=== PATIENT | male | born 1955 | race Caucasian/White ===

== ENCOUNTER 2016-12-17 05:48 | Day surgery (SDC) | payer BC ==
[2016-12-17] MEDS ORDERED: Lactated Ringers 1,000 ML IV SCH (06:30)
--- NOTE | 2016-12-17 07:35 | OP ---
SURGERY DATE/TIME: 12/17/2016 0700 PREOPERATIVE DIAGNOSIS: Screening exam. POSTOPERATIVE DIAGNOSIS: Normal colon. PROCEDURE: Colonoscopy. SURGEON: Dr. Oliveira. ANESTHESIA: Medications given by anesthesia department. HISTORY: The patient is a 61 year-old white male patient who now is presenting for screening colonoscopy. He was appraised of the risks of the procedure including the risk of perforation, phlebitis, untoward reaction to medication bleeding, and missed lesions. The patient verbalized his understanding and desired to have the procedure performed. DESCRIPTION OF PROCEDURE: The patient was given the medications by the anesthesia department. He had continuous pulse oximetry, ECG monitoring, intermittent blood pressure monitoring, and tidal CO2 monitoring during the examination. He was placed in the left lateral decubitus position. A digital rectal examination was performed and revealed normal anal sphincter tone and no masses. The flexible Olympus pediatric colonoscope was used to intubate the rectum. A view of the colon was developed sequentially to the cecum. Upon insertion and withdrawal, including a retroflex view in the rectum, no mucosal lesions were encountered. The scope was removed from the patient who tolerated the procedure well and was sent back to OP recovery in good condition. The prep was noted to be fair.
[2016-12-17] MEDS ORDERED: DIPRIVAN 200 MG/20 ML IV ONE (08:00)
[2016-12-17] MEDS ORDERED: Versed 2 MG/2 ML Injection IV ONE (08:00)
[2016-12-17 08:01] VITALS: PULSE 63
[2016-12-17 09:55] VITALS: BP 154/76; O2SAT 95
== END 2016-12-17 09:10 | disposition home or self-care (01) ==
LOC: SDC 05:48
PROVIDERS: ATTEND Family Medicine
PROC: 0DJD8ZZ Inspection of Lower Intestinal Tract, Via Natural or Artificial Opening Endoscopic (ICD-10-PCS; principal; 2016-12-17)
DX: Z12.11 Encounter for screening for malignant neoplasm of colon (principal); Z85.038 Personal history of other malignant neoplasm of large intestine; E11.9 Type 2 diabetes mellitus without complications
CPT/HCPCS: 00810; 82962; J2250; J2704

== ENCOUNTER 2019-06-18 04:33 | Emergency (ER) | payer BC ==
[2019-06-18 05:14] LABS: Appearance CLOUDY (CLEAR); Bacteria RARE /HPF (NEGATIVE); Bilirubin NEGATIVE (NEGATIVE); Blood SMALL Ery/ul (0-5); Epithelial Cells RARE /HPF (FEW); Glucose 50 mg/dL (NEGATIVE); Ketones NEGATIVE (NEGATIVE); Leukocyte Esterase LARGE (NEGATIVE); Mucus SLIGHT /HPF (NEGATIVE); Nitrite POSITIVE (NEGATIVE); Protein,Urine Dip NEGATIVE (Negative); Specific Gravity 1.013 (1.005-1.025); Urobilinogen NEGATIVE mg/dL (0-1); WBC >100 /HPF (0-5)
[2019-06-18] MEDS ORDERED: TYLENOL 325 MG PO STA (05:14)
[2019-06-18] MEDS ORDERED: TYLENOL 325 MG ONE (05:15)
[2019-06-18 06:06] VITALS: O2SAT 93
--- NOTE | 2019-06-18 06:09 | ERPHSYRPT ---
- History of Present Illness Time Seen by Provider: 06/18/19 05:05 Source: patient, family Exam Limitations: no limitations Patient Subjective Stated Complaint: pt states that he has been having trouble urinating, pt states that he gets UTI often, pt states that he woke up at 0330 this shaking, pt states that he had the chills, pt states that he has had trouble empting bladder, pt states that he pushes on his bladder to empty it when urinating, pt state he has frequency and urgency, pt states that he has been taking cefdinir and ibuprofen every night for the past week, pt states that he had left over antibotics, pt states that he has had nausea, pt states that he took cefdinir and 2 ibuprofen at 0400 Triage Nursing Assessment: pt ambulated into the er, pt axo x3, c/o frequency and urgency when urinating, urine cloudy, straw color and foul smelling, denies flank pain, febrile, tachycardic Physician History: This is a 64-year-old male who has a history of prostate problems causing him to have mild urinary retention. He has had several incidences of urinary tract infections. Patient had a prior prescription of Omnicef. He has taken this for the last few days and despite this, he has had dysuria urgency and frequency. He has had fever and chills. Patient took 400 mg of ibuprofen prior to his arrival at approximately 4 AM. Patient denies abdominal pain of significance. He has had no vomiting or diarrhea. Timing/Duration: today Activites at Onset: sleep Quality: pressure Severity of Pain-Max: none Severity of Pain-Current: none Sexual intercourse history: non-contributory Modifying Factors: Improves With: analgesics Associated Symptoms: fever, chills, dysuria, urinary frequency, No nausea, No vomiting Allergies/Adverse Reactions: cat dander Allergy (Verified 06/18/19 05:04) Home Medications: Ibuprofen 200 mg [Motrin 200 mg] 2 tab PO DAILY 12/10/16 [History] Hx Tetanus, Diphtheria Vaccination/Date Given: Yes Hx Influenza Vaccination/Date Given: No Hx Pneumococcal Vaccination/Date Given: No - Review of Systems Constitutional: Fever, Chills Eyes: No Symptoms Ears, Nose, & Throat: No Symptoms Respiratory: No Symptoms Cardiac: No Symptoms Abdominal/Gastrointestinal: No Symptoms Genitourinary Symptoms: Dysuria, Frequency, Urgency, Urinary Retention (mild) Musculoskeletal: No Symptoms Skin: No Symptoms Neurological: No Symptoms Psychological: No Symptoms Endocrine: No Symptoms Hematologic/Lymphatic: No Symptoms Immunological/Allergic: No Symptoms All Other Systems: Reviewed and Negative - Past Medical History Pertinent Past Medical History: Yes Neurological History: No Pertinent History ENT History: No Pertinent History Respiratory History: Other Endocrine Medical History: Diabetes Type II Musculoskeletal History: Other GI Medical History: GERD History: Other Psycho-Social History: No Pertinent History Male Reproductive Disorders: No Pertinent History Other Medical History: heart murmur. shoulder pain. frequent uti - Past Surgical History Past Surgical History: Yes Neuro Surgical History: No Pertinent History Cardiac: No Pertinent History Respiratory: No Pertinent History Gastrointestinal: Hemorrhoidectomy Genitourinary: No Pertinent History Musculoskeletal: No Pertinent History Male Surgical History: Vasectomy - Social History Smoking Status: Former smoker Exposure to second hand smoke: No Drug Use: none Patient Lives Alone: No - Nursing Vital Signs Nursing Vital Signs: Initial Vital Signs Temperature 101.5 F 06/18/19 04:45 Pulse Rate 124 H 06/18/19 04:45 Respiratory Rate 15 06/18/19 04:45 Blood Pressure 133/72 06/18/19 04:45 O2 Sat by Pulse Oximetry 94 L 06/18/19 04:45 - Physical Exam General Appearance: no apparent distress, alert, anxiety Eye Exam: PERRL/EOMI, eyes nml inspection Ears, Nose, Throat Exam: normal ENT inspection, moist mucous membranes Neck Exam: normal inspection, non-tender, supple, full range of motion Respiratory Exam: normal breath sounds, lungs clear, airway intact, No chest tenderness, No respiratory distress Cardiovascular Exam: tachycardia Gastrointestinal/Abdomen Exam: soft, normal bowel sounds, No tenderness Rectal Exam: not done Back Exam: normal inspection, normal range of motion, No CVA tenderness, No vertebral tenderness Extremity Exam: normal inspection, normal range of motion, pelvis stable Neurologic Exam: alert, oriented x 3, cooperative, 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 loader II-XII nml as tested Skin Exam: normal color, warm, dry Lymphatic Exam: No adenopathy SpO2 Interpretation: borderline oxygenation SpO2: 93 O2 Delivery: Room Air - Course Nursing assessment & vital signs reviewed: Yes Ordered Tests: Active Orders 24 hr Category Date Time Status CULTURE,URINE Stat Lab 06/18/19 05:08 Received UA W/RFX UR CULTURE Stat Lab 06/18/19 05:08 Completed Medication Summary Discontinued Medications Generic Name Dose Route Start Last Admin Trade Name Jamal PRN Reason Stop Dose Admin Acetaminophen 650 mg 06/18/19 05:14 06/18/19 05:16 Tylenol 325 Mg PO 06/18/19 05:15 650 mg STAT STA Administration Acetaminophen Confirm 06/18/19 05:15 Tylenol 325 Mg Administered 06/18/19 05:16 Dose 650 mg .ROUTE .STK-MED ONE Ciprofloxacin 500 mg 06/18/19 06:11 Cipro 500 Mg PO 06/18/19 06:12 STAT ONE Ibuprofen 200 mg 06/18/19 06:12 Motrin 200 Mg PO 06/18/19 06:13 STAT ONE Lab/Rad Data: Laboratory Results 06/18/19 Range/Units 05:08 Urine Color YELLOW (YELLOW) Urine Appearance CLOUDY (CLEAR) Urine pH 6.0 (5-6) Ur Specific [place] 1.013 (1.005-1.025) Urine Protein NEGATIVE (Negative) Urine Ketones NEGATIVE (NEGATIVE) Urine Blood SMALL (0-5) Juan/ul Urine Nitrite POSITIVE (NEGATIVE) Urine Bilirubin NEGATIVE (NEGATIVE) Urine Urobilinogen NEGATIVE (0-1) mg/dL Ur Leukocyte Esterase LARGE (NEGATIVE) Urine WBC (Auto) >100 (0-5) /HPF Urine RBC (Auto) 16-25 (0-2) /HPF U Epithel Cells (Auto) RARE (FEW) /HPF Urine Bacteria (Auto) RARE (NEGATIVE) /HPF Urine Mucus (Auto) SLIGHT (NEGATIVE) /HPF Urine Culture Reflexed YES (NO) Urine Glucose 50 (NEGATIVE) mg/dL - Progress Progress: unchanged Air Movement: good Progress Note: 06/18/19 06:18 differential diagnosis includes urinary tract infection, urinary retention, Medical decision making: Since the patient has been taking Omnicef orally for few days and there is persistent symptoms we have opted for changing the antibiotic to Cipro. I offered the patient placement of a Emanuel catheter to help keep urinary flow going. Patient declines at this time. Blood Culture(s) Obtained: No Antibiotics given: Yes Counseled pt/family regarding: lab results, diagnosis, need for follow-up - Departure Departure Disposition: Home Clinical Impression: UTI (urinary tract infection), Fever Condition: Stable Critical Care Time: No Referrals: LEAH RODRIGUEZ [Primary Care Provider] - Additional Instructions: Drink plenty of fluids. Take 650 mg of Tylenol at a time and alternate with 600 mg of ibuprofen orally with food every 4 hours while awake. Follow-up with your primary care doctor for further management Prescriptions: Ciprofloxacin [Cipro 500 MG] 500 mg PO BID #20 tablet
[2019-06-18] MEDS ORDERED: Cipro 500 MG PO ONE (06:11)
[2019-06-18] MEDS ORDERED: MOTRIN 200 MG PO ONE (06:12)
[2019-06-18] MEDS ORDERED: MOTRIN 400 MG ONE (06:16)
[2019-06-18] MEDS ORDERED: Cipro 500 MG ONE (06:16)
[2019-06-18 06:31] VITALS: BP 122/66; PULSE 99
== END 2019-06-18 06:33 | disposition home or self-care (01) ==
LOC: ED 04:33
DX: N39.0 Urinary tract infection, site not specified (principal); R50.9 Fever, unspecified; E11.9 Type 2 diabetes mellitus without complications; K21.9 Gastro-esophageal reflux disease without esophagitis
CPT/HCPCS: 81001; 87077; 87086; 87186; 99284; A9270-GY

== ENCOUNTER 2021-01-26 09:36 | Inpatient (IN) | payer BC ==
[2021-01-26 09:47] LABS: A-aADO2 477; ABG HEMOGLOBIN 14.7; ABG POTASSIUM 4.3 (3.5-5.1); ARTERIAL BLD GAS O2 SATURATION 82.4 % (95-100); ARTERIAL BLOOD GAS BASE EXCESS -3.3 (-2.0-2.0); ARTERIAL BLOOD GAS FIO2 80 %; ARTERIAL BLOOD GAS PCO2 36 mmHg (35-45); ARTERIAL BLOOD GAS pH 7.38 (7.35-7.45); CARBOXYHEMOGLOBIN 1.4 % THgb (0.0-6.9); HCO3- 21.3 (22-28); HGB O2 SAT 80.7 g/dF (94-100); Lactic Acid 2.3 (0.4-2.0); Methhemoglobin 0.7 % (1.4-1.5)
[2021-01-26 09:48] LABS: ABG SITE LEFT RADIAL; ALLEN TEST OK? yes; ARTERIAL BLOOD GAS PO2 48 mmHg (75-100)
[2021-01-26] MEDS ORDERED: DUONEB 0.5-3 MG/3 ml Neb IH ONE ×3 (09:48→15:16)
--- NOTE | 2021-01-26 10:10 | ERPHSYRPT ---
- History of Present Illness Time Seen by Provider: 01/26/21 09:48 Source: patient Exam Limitations: no limitations Patient Subjective Stated Complaint: SOB Triage Nursing Assessment: Patient brought into ED via EMS and transferred to bed with assist of 3. Patient A+O X3. Patient's skin pink, warm and dry. Patient complains of SOB. Patient states he tested positive for COVID with home test on Saturday. Patient was seen in [facility] yesterday and given oxygen and he was wearing it at 3 liters per n/c. Patient called EMS due to O2 Sat in the 60s. EMS arrived and O2 77% on room air and placed patient on breathing tx which raised to 81%. Patient placed on oxymask at 15 liters upon arrival which sat was 81%. Patient placed on Bipap and brought to 99%. Physician History: 65 years old male with a history of diabetes mellitus, hypertension, unvaccinated against COVID-19 presented in the ER with increasing shortness of breath for 1 week. Patient reports positive home COVID-19 test few days ago and was seen yesterday at [facility], was given 3 L oxygen but shortness of breath is getting worse to the point that despite using oxygen does not feel he is able to catch his breath. Patient reports his oxygen was dropping 60s and on EMS arrival it was 77, given Solu-Medrol, neb treatment, placed on 15 L and was 88 1% on arrival with decreased air entry bilateral. Immediately placed on BiPAP and improved saturation of 99% and is feeling much better. Patient reports having tightness and pressure all over her chest with subjective feeling of fever and chills. Cough productive of minimal sputum. History is limited secondary to his respiratory distress and acuity of condition. Timing/Duration: week(s) (1), constant, gradual onset, worse Activities at Onset: activity, rest Severity of Dyspnea-Max: severe Severity of Dyspnea-Current: severe Modifying Factors: Improves With: oxygen Associated Symptoms: cough, wheezing, heaviness, painful breathing, productive cough, tightness Allergies/Adverse Reactions: cat dander Allergy (Verified 01/26/21 09:43) Home Medications: Ibuprofen 200 mg [Motrin 200 mg] 2 tab PO DAILY 12/10/16 [History] Hx Tetanus, Diphtheria Vaccination/Date Given: Yes Hx Influenza Vaccination/Date Given: No Hx Pneumococcal Vaccination/Date Given: No Immunizations Up to Date: Yes Travel Risk - International Travel Have you traveled outside of the country in past 3 weeks: No - Coronavirus Screening Are you exhibiting any of the following symptoms?: Yes Symptoms: Cough: New Onset, Shortness of Breath Close contact with a COVID-19 positive Pt in past 14-21 Days: Yes - Vaccine Status Have you recieved a Covid-19 vaccination: No - Review of Systems All Other Systems: Unable due to condition - Past Medical History Pertinent Past Medical History: Yes Neurological History: No Pertinent History ENT History: No Pertinent History Respiratory History: Other Endocrine Medical History: Diabetes Type II Musculoskeletal History: Other GI Medical History: GERD History: Other Psycho-Social History: No Pertinent History Male Reproductive Disorders: No Pertinent History Other Medical History: heart murmur. shoulder pain. frequent uti - Past Surgical History Past Surgical History: Yes Neuro Surgical History: No Pertinent History Cardiac: No Pertinent History Respiratory: No Pertinent History Gastrointestinal: Hemorrhoidectomy Genitourinary: No Pertinent History Musculoskeletal: No Pertinent History Male Surgical History: Vasectomy - Social History Smoking Status: Former smoker Exposure to second hand smoke: No Drug Use: none Patient Lives Alone: No - Nursing Vital Signs Nursing Vital Signs: Initial Vital Signs Temperature 98.0 F 01/26/21 09:43 Pulse Rate 82 01/26/21 09:43 Respiratory Rate 20 01/26/21 09:43 Blood Pressure 118/55 01/26/21 09:43 O2 Sat by Pulse Oximetry 98 01/26/21 09:43 Pain Scale Pain Intensity 0 - Physical Exam General Appearance: moderate distress, alert, anxiety Eye Exam: PERRL/EOMI, eyes nml inspection Ears, Nose, Throat Exam: pharyngeal erythema Neck Exam: normal inspection, non-tender, full range of motion Respiratory Exam: respiratory distress, diminished breath sounds, accessory muscle use, crackles/rales, rhonchi, wheezing Cardiovascular/Chest Exam: normal heart sounds, regular rate/rhythm Abdominal/Gastrointestinal Exam: soft, normal bowel sounds, No tenderness Extremity Exam: non-tender, normal range of motion, normal inspection Neurologic Exam: alert, oriented x 3, 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, 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 Skin Exam: normal color SpO2 Interpretation: O2 applied SpO2: 98 O2 Delivery: BiPap/CPAP - Course EKG Interpreted by Me: RATE (93), Sinus Rhythm, NORMAL AXIS, NORMAL INTERVALS, Q-wave Ordered Tests: Active Orders 24 hr Category Date Time Status EKG-ER Only STAT Care 01/26/21 09:48 Active IV Insertion STAT Care 01/26/21 09:48 Active CHEST 1 VIEW (PORTABLE) Stat Exams 01/26/21 09:49 Completed CHEST WITH CONTRAST [CT] Stat Exams 01/26/21 10:46 Ordered ABG [ARTERIAL BLOOD GASES] Urgent Lab 01/26/21 09:46 Completed BLOOD CULTURE Stat Lab 01/26/21 10:05 Received CBC W DIFF Stat Lab 01/26/21 10:05 Completed CMP Stat Lab 01/26/21 10:05 Completed D-DIMER QUANTITATIVE Stat Lab 01/26/21 10:05 Completed Lactic Acid Urgent Lab 01/26/21 09:46 Completed MAGNESIUM Stat Lab 01/26/21 10:05 Completed Manual Differential NC Stat Lab 01/26/21 10:05 Completed NT PRO BNP Stat Lab 01/26/21 10:05 Completed TROPONIN Q3H Lab 01/26/21 10:00 Completed TROPONIN Q3H Lab 01/26/21 13:00 Ordered TROPONIN Q3H Lab 01/26/21 16:00 Ordered TROPONIN Q3H Lab 01/26/21 19:00 Ordered TROPONIN Q3H Lab 01/26/21 22:00 Ordered UA W/RFX UR CULTURE Stat Lab 01/26/21 09:49 Ordered BiPap/CPAP STAT RT 01/26/21 09:48 Completed Respiratory Therapy Assessment DAILY RT 01/26/21 10:23 Completed Transfer Order Routine Transfer 01/26/21 Ordered Medication Summary Generic Name Dose Route Start Last Admin Trade Name Freq PRN Reason Stop Dose Admin Levofloxacin/Dextrose 750 mg in 150 mls @ 100 mls/hr 01/26/21 10:46 Levofloxacin 750mg/150ml D5w IV 01/26/21 12:15 STAT STA Remdesivir 200 mg/ Sodium 250 mls @ 125 mls/hr 01/26/21 10:48 Chloride IV 01/26/21 12:47 ONCE ONE Discontinued Medications Generic Name Dose Route Start Last Admin Trade Name Freq PRN Reason Stop Dose Admin Albuterol/Ipratropium 3 ml 01/26/21 09:48 01/26/21 10:00 Duoneb 0.5-3 Mg/3 Ml Neb IH 01/26/21 09:49 3 ml STAT ONE Administration Albuterol/Ipratropium Confirm 01/26/21 10:01 Duoneb 0.5-3 Mg/3 Ml Neb Administered 01/26/21 10:02 Dose 3 ml IH .STK-MED ONE Lab/Rad Data: Laboratory Result Diagrams 01/26/21 10:05 01/26/21 10:05 Laboratory Results 01/26/21 01/26/21 01/26/21 Range/Units 10:19 10:05 10:05 WBC (4.0-10.5) K/mm3 RBC (4.1-5.6) M/mm3 Hgb (12.5-18.0) gm/dl Hct (42-50) % MCV (78-100) fl MCH (26-32) pg MCHC (32-36) g/dl RDW (11.5-14.0) % Plt Count (150-450) K/mm3 MPV (7.5-11.0) fl D-Dimer 1352 H* (215-500) ng/mL Puncture Site pCO2 (35-45) mmHg pO2 (75-100) mmHg Base Excess (-2.0-2.0) O2 Saturation (94-100) g/dF ABG pH (7.35-7.45) ABG HCO3 (22-28) ABG O2 Sat (Measured) (95-100) % Eloy Test A-a Gradient a/A Ratio Hemoglobin Carboxyhemoglobin (0.0-6.9) % THgb Methemoglobin (1.4-1.5) % Potassium 4.2 (3.5-5.1) Temperature C POC O2 Flow Rate % Sodium 128 L (137-145) mmol/L Chloride 97 L (98-107) mmol/L Carbon Dioxide 18 L (22-30) mmol/L Anion Gap 16.4 H (5-15) MEQ/L BUN 28 H (9-20) mg/dL Creatinine 0.97 (0.66-1.25) mg/dL Estimated GFR > 60.0 ML/MIN Glucose 200 H (74-106) mg/dL Lactic Acid (0.4-2.0) Calcium 8.0 L (8.4-10.2) mg/dL Magnesium 2.1 (1.6-2.3) mg/dL Total Bilirubin 0.60 (0.2-1.3) mg/dL AST 138 H (17-59) U/L ALT 77 H (0-50) U/L Alkaline Phosphatase 60 (38-126) U/L Troponin I (0.000-0.034) ng/mL NT-Pro-B Natriuret Pep 88.0 (0-900) pg/mL Serum Total Protein 7.4 (6.3-8.2) g/dL Albumin 3.8 (3.5-5.0) g/dL SARS-CoV-2 (PCR) POSITIVE A (NEGATIVE) 01/26/21 01/26/21 01/26/21 Range/Units 10:05 10:00 09:46 WBC 5.9 (4.0-10.5) K/mm3 RBC 4.65 (4.1-5.6) M/mm3 Hgb 14.2 (12.5-18.0) gm/dl Hct 43.1 (42-50) % MCV 92.7 (78-100) fl MCH 30.5 (26-32) pg MCHC 32.9 (32-36) g/dl RDW 14.0 (11.5-14.0) % Plt Count 188 (150-450) K/mm3 MPV 9.7 (7.5-11.0) fl D-Dimer (215-500) ng/mL Puncture Site LEFT RADIAL pCO2 36 (35-45) mmHg pO2 48 L* (75-100) mmHg Base Excess -3.3 L (-2.0-2.0) O2 Saturation 80.7 L (94-100) g/dF ABG pH 7.38 (7.35-7.45) ABG HCO3 21.3 L (22-28) ABG O2 Sat (Measured) 82.4 L (95-100) % Eloy Test yes A-a Gradient 477 a/A Ratio 0.09 Hemoglobin 14.7 Carboxyhemoglobin 1.4 (0.0-6.9) % THgb Methemoglobin 0.7 L (1.4-1.5) % Potassium 4.3 (3.5-5.1) Temperature 37.0 C POC O2 Flow Rate 80 % Sodium (137-145) mmol/L Chloride (98-107) mmol/L Carbon Dioxide (22-30) mmol/L Anion Gap (5-15) MEQ/L BUN (9-20) mg/dL Creatinine (0.66-1.25) mg/dL Estimated GFR ML/MIN Glucose (74-106) mg/dL Lactic Acid 2.3 H (0.4-2.0) Calcium (8.4-10.2) mg/dL Magnesium (1.6-2.3) mg/dL Total Bilirubin (0.2-1.3) mg/dL AST (17-59) U/L ALT (0-50) U/L Alkaline Phosphatase (38-126) U/L Troponin I 0.016 (0.000-0.034) ng/mL NT-Pro-B Natriuret Pep (0-900) pg/mL Serum Total Protein (6.3-8.2) g/dL Albumin (3.5-5.0) g/dL SARS-CoV-2 (PCR) (NEGATIVE) - Progress Progress: improved Air Movement: fair Progress Note: 01/26/21 11:35 65 years old is evaluated for severe respiratory distress with positive COVID-19 at home. Patient is immediately placed on BiPAP followed by CPAP which help with this work of breathing. Chest x-ray showed bilateral airspace disease, given a dose of Levaquin. Patient already received a shot of Solu-Medrol on the way to the ER. Given breathing treatment. Has normal white count, chemistry profile showed mild hyponatremia. Started on remdesivir. Discussed with Dr. Abrams and patient is being admitted. Elevated D-dimer and CTA is currently pending Blood Culture(s) Obtained: Yes Antibiotics given: Yes Discussed with : Other (Dr. Mata) Will see patient in: hospital (full admit) Counseled pt/family regarding: lab results, diagnosis, rad results - Departure Departure Disposition: In-patient Admission Clinical Impression: Acute respiratory failure with hypoxia, COVID-19 Bilateral pneumonia Qualifiers: Pneumonia type: due to unspecified organism Lung location: unspecified part of lung Qualified Code(s): J18.9 - Pneumonia, unspecified organism Condition: Fair Critical Care Time: Yes Critical Care Time(excluding separately billable procedures): Critical 30-74 mins Referrals: LEAH RODRIGUEZ [Primary Care Provider] -
--- NOTE | 2021-01-26 10:20 | XRAY ---
Indication: Short of breath. Comparison: None Portable chest slightly underinflated with diffuse bilateral hazy interstitial alveolar opacities without consolidation/large effusion. Heart borderline enlarged. Bony thorax intact.
[2021-01-26 10:32] LABS: Hematocrit 43.1 % (42-50); Hemoglobin 14.2 gm/dl (12.5-18.0); Mean Cell Volume 92.7 fl (78-100); Mean Corpuscular Hemoglobin 30.5 pg (26-32); Mean Corpuscular Hgb Concent. 32.9 g/dl (32-36); Mean Platelet Volume 9.7 fl (7.5-11.0); Platelet Count 188 K/mm3 (150-450); Red Blood Count 4.65 M/mm3 (4.1-5.6); White Blood Count 5.9 K/mm3 (4.0-10.5)
[2021-01-26 10:35] LABS: ALBUMIN 3.8 g/dL (3.5-5.0); ALKALINE PHOSPHATASE 60 U/L (38-126); ANION GAP 16.4 MEQ/L (5-15); BLOOD UREA NITROGEN 28 mg/dL (9-20); CHLORIDE 97 mmol/L (98-107); Carbon Dioxide 18 mmol/L (22-30); Creatinine 1 0.97 mg/dL (0.66-1.25); EST GLOMERULAR FILTRATION RATE > 60.0 ML/MIN; Glucose 200 mg/dL (74-106); MAGNESIUM 2.1 mg/dL (1.6-2.3); Potassium 4.2 mmol/L (3.5-5.1); SGOT/AST 138 U/L (17-59); SGPT/ALT 77 U/L (0-50); SODIUM 128 mmol/L (137-145); Total Protein 7.4 g/dL (6.3-8.2)
[2021-01-26] MEDS ORDERED: LEVOFLOXACIN 750MG/150ML D5W 750 MG/150 ML BAG IV STA (10:46)
[2021-01-26] MEDS ORDERED: REMDESIVIR 200 MG in Sodium Chloride 0.9% 250 ML 250 ML IV ONE ×2 (10:48→15:00)
--- NOTE | 2021-01-26 11:58 | XRAY ---
Indication: Short of breath and nausea. Elevated d-dimer. Positive Covid 19. Multiple contiguous images obtained through the chest using 100 cc Isovue 370 contrast and PE protocol. Comparison: None There is suboptimal opacification of the pulmonary arteries limiting evaluation of the more distal lobar and segmental branches. No central pulmonary embolus. Heart not enlarged. Aorta is normal in course and caliber. No pathologic mediastinal/hilar lymphadenopathy. Markedly diffuse bilateral groundglass airspace disease with bilateral dependent atelectasis. No effusion. Bony thorax intact with minimal degenerative changes throughout the spine. Limited upper abdomen demonstrates fatty liver. Impression: 1. Pulmonary embolus evaluation limited due to suboptimal contrast opacification. No obvious central pulmonary embolus. 2. Markedly diffuse bilateral groundglass airspace disease. Commonly reported imaging features of Covid 19 pneumonia are present. Other processes such as influenza pneumonia and organizing pneumonia, as can be seen with drug toxicity and connective tissue disease, can cause a similar imaging pattern. 3. Incidental fatty liver.
[2021-01-26] MEDS ORDERED: LEVOFLOXACIN 750MG/150ML D5W 750 MG/150 ML BAG IV ONE (13:07)
[2021-01-26 13:14] LABS: BAND 4 % (0.0-2.0); Lymphocytes 10 % (24-44); Monocyte 8 % (0.0-12.0); Neutrophils 78 % (36.-66.); Platelet Estimate NORMAL (NORMAL); Total Cells Counted 100
[2021-01-26] MEDS ORDERED: Sodium Chloride 0.9% W/ 20 mEq KCl/LITER 1,000 ML IV SCH (13:41)
[2021-01-26] MEDS ORDERED: DECADRON 10MG INJ. IV SCH (14:00)
[2021-01-26] MEDS ORDERED: HYDROCODONE-CHLORPHEN ER SUSP PO PRN (14:24)
[2021-01-26] MEDS ORDERED: FEVERALL 650 MG RC PRN (14:24)
[2021-01-26] MEDS ORDERED: Zofran 4 MG/2 ML VIAL IV PRN (14:25)
[2021-01-26] MEDS: DECADRON 10MG INJ. IV SCH (14:40)
[2021-01-26] MEDS: ENOXAPARIN SODIUM SQ SCH (14:40)
[2021-01-26] MEDS: Sodium Chloride 0.9% 1000 ML 1,000 ML IV SCH (14:41)
[2021-01-26] MEDS: PROTONIX 40 MG IV IV SCH (14:41)
[2021-01-26] MEDS: OLUMIANT PO SCH (16:30)
[2021-01-26] MEDS: HUMALOG SQ PRN ×2 (16:55→22:07)
[2021-01-26] MEDS: Ativan 1 MG PO PRN (17:43)
[2021-01-26 19:33] LABS: A-aADO2 606; ABG HEMOGLOBIN 14.6; ABG POTASSIUM 4.7 (3.5-5.1); ABG SITE RIGHT RADIAL; ALLEN TEST OK? YES; ARTERIAL BLD GAS O2 SATURATION 89.8 % (95-100); ARTERIAL BLOOD GAS BASE EXCESS -4.4 (-2.0-2.0); ARTERIAL BLOOD GAS FIO2 100 %; ARTERIAL BLOOD GAS PCO2 39 mmHg (35-45); ARTERIAL BLOOD GAS PO2 58 mmHg (75-100); ARTERIAL BLOOD GAS VENT MODE BiPAP; ARTERIAL BLOOD GAS pH 7.34 (7.35-7.45); CARBOXYHEMOGLOBIN 0.9 % THgb (0.0-6.9); HGB O2 SAT 88.6 g/dF (94-100); Methhemoglobin 0.4 % (1.4-1.5)
[2021-01-26] MEDS ORDERED: Decadron 4 MG INJ ONE ×2 (19:40→19:41)
[2021-01-26] MEDS ORDERED: Lasix 20 MG/2 ML ONE (19:40)
[2021-01-26] MEDS ORDERED: Decadron 4 MG INJ IV ONE (19:54)
[2021-01-26 20:08] LABS: Appearance SLIGHTLY CLOUDY (CLEAR); Bilirubin NEGATIVE (NEGATIVE); Blood NEGATIVE Ery/ul (0-5); Glucose 150 mg/dL (NEGATIVE); Ketones TRACE (NEGATIVE); Leukocyte Esterase NEGATIVE (NEGATIVE); Mucus SLIGHT /HPF (NEGATIVE); Nitrite NEGATIVE (NEGATIVE); Protein,Urine Dip 100 (Negative); RBC 0-2 /HPF (0-2); Specific Gravity 1.027 (1.005-1.025); Urobilinogen NEGATIVE mg/dL (0-1)
[2021-01-26] MEDS ORDERED: ENOXAPARIN SODIUM SQ SCH (22:00)
[2021-01-26] MEDS: DUONEB 0.5-3 MG/3 ml Neb IH SCH ×2 (22:00→22:10)
[2021-01-26] MEDS ORDERED: Lubrifresh P.M. 3.5 gm Ointment OP PRN (23:00)
[2021-01-27] MEDS: DUONEB 0.5-3 MG/3 ml Neb IH SCH ×4 (01:33→19:00)
[2021-01-27] MEDS ORDERED: Lasix 20 MG/2 ML IV ONE ×2 (02:00→19:54)
[2021-01-27 05:31] LABS: Hematocrit 43.2 % (42-50); Hemoglobin 14.3 gm/dl (12.5-18.0); Mean Cell Volume 91.7 fl (78-100); Mean Corpuscular Hemoglobin 30.4 pg (26-32); Mean Corpuscular Hgb Concent. 33.1 g/dl (32-36); Mean Platelet Volume 9.3 fl (7.5-11.0); Platelet Count 232 K/mm3 (150-450); Red Blood Count 4.71 M/mm3 (4.1-5.6); White Blood Count 5.7 K/mm3 (4.0-10.5)
[2021-01-27 05:56] LABS: ALBUMIN 3.6 g/dL (3.5-5.0); ALKALINE PHOSPHATASE 68 U/L (38-126); BLOOD UREA NITROGEN 28 mg/dL (9-20); CHLORIDE 98 mmol/L (98-107); Calcium 8.1 mg/dL (8.4-10.2); Carbon Dioxide 23 mmol/L (22-30); Creatinine 1 1.01 mg/dL (0.66-1.25); EST GLOMERULAR FILTRATION RATE > 60.0 ML/MIN; Glucose 275 mg/dL (74-106); Potassium 4.4 mmol/L (3.5-5.1); SGOT/AST 128 U/L (17-59); SGPT/ALT 75 U/L (0-50); SODIUM 129 mmol/L (137-145); Total Protein 7.3 g/dL (6.3-8.2)
[2021-01-27 07:13] LABS: BAND 14 % (0.0-2.0); Lymphocytes 19 % (24-44); Metamyelocyte 3 %; Monocyte 10 % (0.0-12.0); Myelocyte 1 %; Neutrophils 53 % (36.-66.); Platelet Estimate NORMAL (NORMAL); Total Cells Counted 100
[2021-01-27 07:14] LABS: Absolute Neutrophil Ct (ANC) 3.85 (1.4-6.9)
[2021-01-27] MEDS: HUMALOG SQ PRN ×2 (07:34→12:12)
[2021-01-27] MEDS: Ativan 2 MG/1 ML VIAL IV PRN ×2 (07:39→12:12)
[2021-01-27] MEDS: Micronase 5 MG PO SCH (08:23)
--- NOTE | 2021-01-27 08:46 | HP ---
CHIEF COMPLAINT: Shortness of breath, achiness, fever, positive COVID test. HISTORY OF PRESENT ILLNESS: The patient is a 65 year-old, French-[place] who has been sick for three or four days. He apparently was in [facility] yesterday and was given oxygen and was running at 3 liters nasal cannula. I do not think he had oxygen at home and I think they sent him home and he had home oxygen. He apparently got some steroids in the emergency room. The patient called EMS due to his O2 saturation being in the 60's. EMS found his O2 saturation at 77% on room air. He was given a nebulizer treatment which raised it to 81% apparently and he was put on OxyMask 15 liters, placed on BiPAP later and brought to the emergency room where he was up to 99%. In the emergency room, he remained very unstable and required oxygen and finally BiPAP. He apparently has no lung disease. He quit smoking many years ago. He has history of mild hypertension, diabetes mellitus. His said he has a heart murmur but no heart disease has been diagnosed. His EKG showed some changes which may be consistent with a subendocardial nonacute. His chest x-ray showed diffuse bilateral ground glass airspace disease typical for COVID. VACCINE STATUS: No. MEDICATIONS: Cialis. Glyburide. ALLERGIES: CAT DANDER. PAST MEDICAL HISTORY: Mild hypertension. Heart murmur. Diabetes mellitus type II. Gastroesophageal reflux disease. Heart murmur. PAST SURGICAL HISTORY: Hemorrhoidectomy. Vasectomy. REVIEW OF SYSTEMS: HEENT: Slightly hard of hearing. CHEST: Shortness of breath on exertion normally. CVS: History of murmur. He said he has not had a heart attack that he knows of. ABDOMEN: No nausea or vomiting. EXTREMITIES: He has some shoulder pain. 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 His son works for him. 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 PHYSICAL EXAMINATION: While in the emergency room he was alert, orientated, short of breath. His O2 saturation was like 88%. HEENT: Essentially normal. CHEST: Few crackles bilateral, decreased breath sounds. ABDOMEN: Obese. No masses or organomegaly. EXTREMITIES: No edema. Noncyanotic. LAB DATA AND TESTS: The patient's D-dimer was 1300. His sodium was slightly low at 128. His BUN was 28, creatinine 0.97. It says a normal GFR of 60. Glucose 200. Preliminary enzymes were just minimally elevated. CT scan did show no pulmonary emboli and did show a fatty liver. Liver enzymes are normal. White count 5.9. IMPRESSION: 1) Bilateral COVID pneumonia. 2) Diabetes mellitus. 3) Hyponatremia, mild. The patient has moderately severe COVID. He will be admitted and watched closely. He was started on BiPAP. The son did not want him to be given Remdesivir. I talked to his and the patient and they agreed to be treated in the typical fashion just like I told them Jose Francisco Elise received. He would get all medications that could possibly help him that we needed all of our medicines. He seemed to be happy with that. There was a problem with the Code Status. The said he did not want to be put on the vent. However when his nurse talked to him and he to also said "No if it came down to that if it was possible to get off the vent he of course would wish to be placed on a vent". I explained to the a long discussion that people who get on a vent will often get off the vent, that COVID is a bad disease. We do know his BNP was normal. PLAN: Continue with all of the COVID medications of Remdesivir, Decadron, anticoagulate him. As he deteriorated he did receive some Lasix and that seemed to help his oxygen pretty quickly. The point was made by the chief of pulmonary here that he surely has sleep apnea and his agreed he snores terribly and he is probably used to lower oxygen. We discussed his case with Dr. Manuel Guallpa and he told us that if we intubated him that he would try to get him a bed somehow. Presently he is stable at 2013 hours.
--- NOTE | 2021-01-27 09:05 | XRAY ---
Indication: Positive Covid 19. Comparison: One day earlier. Portable better inflated with again diffuse bilateral hazy interstitial alveolar opacities, mildly improved in left midlung. Heart not enlarged. No new cardiopulmonary abnormalities.
[2021-01-27] MEDS: Lasix 20 MG/2 ML IV SCH (09:17)
[2021-01-27] MEDS: ENOXAPARIN SODIUM SQ SCH (09:17)
[2021-01-27] MEDS: DECADRON 10MG INJ. IV SCH (09:17)
[2021-01-27] MEDS: OLUMIANT PO SCH (09:18)
[2021-01-27] MEDS: PROTONIX 40 MG IV IV SCH (09:18)
[2021-01-27] MEDS ORDERED: Levofloxacin 500MG/100ML D5W 500 MG/100 ML BAG IV SCH (10:00)
[2021-01-27 10:18] LABS: A-aADO2 601; ABG HEMOGLOBIN 15.2; ABG POTASSIUM 4.3 (3.5-5.1); ARTERIAL BLD GAS O2 SATURATION 92.3 % (95-100); ARTERIAL BLOOD GAS BASE EXCESS -2.5 (-2.0-2.0); ARTERIAL BLOOD GAS FIO2 100 %; ARTERIAL BLOOD GAS PCO2 39 mmHg (35-45); ARTERIAL BLOOD GAS PO2 63 mmHg (75-100); ARTERIAL BLOOD GAS VENT MODE BiPAP; ARTERIAL BLOOD GAS pH 7.37 (7.35-7.45); CARBOXYHEMOGLOBIN 0.9 % THgb (0.0-6.9); HCO3- 22.5 (22-28); HGB O2 SAT 90.7 g/dF (94-100); Methhemoglobin 0.8 % (1.4-1.5)
[2021-01-27 10:19] LABS: ARTERIAL BLD GAS TIDAL VOLUME 500 cc; ARTERIAL BLOOD GAS VENT RATE 18 /MIN
[2021-01-27 10:20] LABS: ABG SITE lr; ALLEN TEST OK? YES
[2021-01-27] MEDS: REMDESIVIR 100 MG in Sodium Chloride 0.9% 100 ML BAG 100 ML IV SCH (10:31)
[2021-01-27] MEDS: Sodium Chloride 0.9% 1000 ML 1,000 ML IV SCH (17:18)
[2021-01-28] MEDS: DUONEB 0.5-3 MG/3 ml Neb IH SCH ×6 (01:05→23:35)
[2021-01-28] MEDS: TYLENOL 325 MG PO PRN ×2 (02:30→06:30)
[2021-01-28 06:24] LABS: Hematocrit 42.3 % (42-50); Hemoglobin 13.9 gm/dl (12.5-18.0); Mean Cell Volume 92.6 fl (78-100); Mean Corpuscular Hemoglobin 30.4 pg (26-32); Mean Corpuscular Hgb Concent. 32.9 g/dl (32-36); Mean Platelet Volume 9.1 fl (7.5-11.0); Platelet Count 276 K/mm3 (150-450); Red Blood Count 4.57 M/mm3 (4.1-5.6); White Blood Count 12.8 K/mm3 (4.0-10.5)
[2021-01-28 06:39] LABS: ALBUMIN 3.3 g/dL (3.5-5.0); ALKALINE PHOSPHATASE 67 U/L (38-126); BLOOD UREA NITROGEN 35 mg/dL (9-20); CHLORIDE 100 mmol/L (98-107); Carbon Dioxide 22 mmol/L (22-30); Creatinine 1 1.05 mg/dL (0.66-1.25); EST GLOMERULAR FILTRATION RATE > 60.0 ML/MIN; Glucose 241 mg/dL (74-106); SGOT/AST 100 U/L (17-59); SGPT/ALT 60 U/L (0-50); SODIUM 130 mmol/L (137-145); Total Protein 6.7 g/dL (6.3-8.2)
[2021-01-28 06:41] LABS: Potassium 4.2 mmol/L (3.5-5.1)
[2021-01-28] MEDS: Micronase 5 MG PO SCH (07:54)
[2021-01-28] MEDS: OLUMIANT PO SCH (09:35)
[2021-01-28] MEDS: DECADRON 10MG INJ. IV SCH (09:36)
[2021-01-28] MEDS: Lasix 20 MG/2 ML IV SCH (09:40)
[2021-01-28] MEDS: PROTONIX 40 MG IV IV SCH (09:40)
[2021-01-28] MEDS: ENOXAPARIN SODIUM SQ SCH (09:41)
[2021-01-28] MEDS: REMDESIVIR 100 MG in Sodium Chloride 0.9% 100 ML BAG 100 ML IV SCH (11:48)
[2021-01-28] MEDS: NORCO 5/325 MG PO PRN ×2 (12:13→21:04)
[2021-01-28] MEDS: Levofloxacin 250MG Tablet PO SCH ×2 (13:22→21:05)
[2021-01-28] MEDS: HUMALOG SQ PRN (17:01)
[2021-01-28] MEDS: Sodium Chloride 0.9% 1000 ML 1,000 ML IV SCH (17:04)
[2021-01-28 18:28] LABS: Appearance SLIGHTLY CLOUDY (CLEAR); Bacteria RARE /HPF (NEGATIVE); Bilirubin NEGATIVE (NEGATIVE); Blood LARGE Ery/ul (0-5); Glucose 150 mg/dL (NEGATIVE); Ketones NEGATIVE (NEGATIVE); Leukocyte Esterase TRACE (NEGATIVE); Mucus SLIGHT /HPF (NEGATIVE); Nitrite NEGATIVE (NEGATIVE); Protein,Urine Dip 100 (Negative); Specific Gravity 1.025 (1.005-1.025); Urobilinogen NEGATIVE mg/dL (0-1)
[2021-01-28 18:29] LABS: RBC >101 /HPF (0-2)
[2021-01-28] MEDS: Ativan 1 MG PO PRN (21:05)
[2021-01-29] MEDS: DUONEB 0.5-3 MG/3 ml Neb IH SCH ×4 (04:46→23:00)
[2021-01-29] MEDS: NORCO 5/325 MG PO PRN ×3 (06:03→21:36)
[2021-01-29 06:32] LABS: Hematocrit 43.5 % (42-50); Hemoglobin 14.1 gm/dl (12.5-18.0); Mean Cell Volume 93.1 fl (78-100); Mean Corpuscular Hemoglobin 30.2 pg (26-32); Mean Corpuscular Hgb Concent. 32.4 g/dl (32-36); Mean Platelet Volume 9.1 fl (7.5-11.0); Platelet Count 275 K/mm3 (150-450); Red Blood Count 4.67 M/mm3 (4.1-5.6); Red Cell Distribution Width 14.3 % (11.5-14.0); White Blood Count 12.5 K/mm3 (4.0-10.5)
[2021-01-29 07:03] LABS: ALBUMIN 3.3 g/dL (3.5-5.0); ALKALINE PHOSPHATASE 81 U/L (38-126); ANION GAP 12.2 MEQ/L (5-15); BLOOD UREA NITROGEN 27 mg/dL (9-20); CHLORIDE 102 mmol/L (98-107); Calcium 7.9 mg/dL (8.4-10.2); Carbon Dioxide 23 mmol/L (22-30); Creatinine 1 0.84 mg/dL (0.66-1.25); EST GLOMERULAR FILTRATION RATE > 60.0 ML/MIN; Glucose 219 mg/dL (74-106); Potassium 4.3 mmol/L (3.5-5.1); SGOT/AST 83 U/L (17-59); SGPT/ALT 52 U/L (0-50); SODIUM 133 mmol/L (137-145); Total Protein 6.7 g/dL (6.3-8.2)
[2021-01-29] MEDS: Ativan 2 MG/1 ML VIAL IV PRN ×2 (10:54→17:25)
[2021-01-29] MEDS: Micronase 5 MG PO SCH (11:01)
[2021-01-29] MEDS: ENOXAPARIN SODIUM SQ SCH (11:02)
[2021-01-29] MEDS: DECADRON 10MG INJ. IV SCH (11:02)
[2021-01-29] MEDS: Lasix 20 MG/2 ML IV SCH (11:03)
[2021-01-29] MEDS: OLUMIANT PO SCH (11:03)
[2021-01-29] MEDS: PROTONIX 40 MG IV IV SCH (11:04)
[2021-01-29] MEDS: REMDESIVIR 100 MG in Sodium Chloride 0.9% 100 ML BAG 100 ML IV SCH (11:37)
[2021-01-29] MEDS: Levofloxacin 250MG Tablet PO SCH (12:41)
[2021-01-29] MEDS: Ativan 1 MG PO PRN (21:36)
[2021-01-29] MEDS: Sodium Chloride 0.9% 1000 ML 1,000 ML IV SCH (21:37)
[2021-01-29] MEDS: HUMALOG SQ PRN (21:38)
[2021-01-30] MEDS: Ativan 2 MG/1 ML VIAL IV PRN ×2 (03:10→08:00)
[2021-01-30] MEDS: DUONEB 0.5-3 MG/3 ml Neb IH SCH ×5 (04:30→23:10)
[2021-01-30 05:36] LABS: Hematocrit 44.3 % (42-50); Hemoglobin 14.5 gm/dl (12.5-18.0); Mean Cell Volume 92.9 fl (78-100); Mean Corpuscular Hemoglobin 30.4 pg (26-32); Mean Corpuscular Hgb Concent. 32.7 g/dl (32-36); Mean Platelet Volume 9.2 fl (7.5-11.0); Platelet Count 306 K/mm3 (150-450); Red Blood Count 4.77 M/mm3 (4.1-5.6); Red Cell Distribution Width 14.2 % (11.5-14.0); White Blood Count 18.8 K/mm3 (4.0-10.5)
[2021-01-30 05:56] LABS: ALBUMIN 3.5 g/dL (3.5-5.0); ALKALINE PHOSPHATASE 111 U/L (38-126); ANION GAP 13.5 MEQ/L (5-15); BLOOD UREA NITROGEN 21 mg/dL (9-20); CHLORIDE 101 mmol/L (98-107); Calcium 8.2 mg/dL (8.4-10.2); Carbon Dioxide 25 mmol/L (22-30); Creatinine 1 0.71 mg/dL (0.66-1.25); EST GLOMERULAR FILTRATION RATE > 60.0 ML/MIN; Glucose 206 mg/dL (74-106); SGOT/AST 85 U/L (17-59); SGPT/ALT 50 U/L (0-50); SODIUM 136 mmol/L (137-145); Total Protein 7.1 g/dL (6.3-8.2)
[2021-01-30] MEDS: NORCO 5/325 MG PO PRN (08:00)
[2021-01-30 09:00] LABS: A-aADO2 603; ABG HEMOGLOBIN 15.1; ABG POTASSIUM 3.9 (3.5-5.1); ABG SITE lr; ALLEN TEST OK? yes; ARTERIAL BLD GAS O2 SATURATION 92.3 % (95-100); ARTERIAL BLD GAS TIDAL VOLUME 550 cc; ARTERIAL BLOOD GAS FIO2 100 %; ARTERIAL BLOOD GAS PCO2 40 mmHg (35-45); ARTERIAL BLOOD GAS PO2 60 mmHg (75-100); ARTERIAL BLOOD GAS VENT MODE BiPAP; ARTERIAL BLOOD GAS VENT RATE 18 /MIN; CARBOXYHEMOGLOBIN 0.8 % THgb (0.0-6.9); HCO3- 24.8 (22-28); Methhemoglobin 0.7 % (1.4-1.5)
--- NOTE | 2021-01-30 09:00 | XRAY ---
Indication: Worsening short of breath. Positive Covid 19. Comparison: None Portable chest now underinflated with worsening diffuse bilateral airspace disease, new small consolidation/effusion, and borderline cardiomegaly. No other cardiopulmonary abnormalities.
[2021-01-30] MEDS ORDERED: Ativan 2 MG/1 ML VIAL IV ONE (09:19)
[2021-01-30] MEDS ORDERED: SUBLIMAZE 100 MCG/2 ML ONE (09:58)
[2021-01-30] MEDS ORDERED: Ativan 2 MG/1 ML VIAL ONE (10:00)
[2021-01-30] MEDS ORDERED: Nimbex 20MG/10 Ml Vial (HIGH RISK MED) IV ONE (10:00)
[2021-01-30] MEDS ORDERED: Quelicin Fliptop 200 MG/10 ML ONE (10:00)
[2021-01-30] MEDS ORDERED: VERSED 5 MG/5 ML ONE (10:00)
[2021-01-30] MEDS: Ativan 20 MG/10 ML MDV*** 40 MG in D5w 100ML Mini Bag 100 ML 80 ML IV PRN (10:18)
[2021-01-30] MEDS: SUBLIMAZE 1000 Mcg/ 20 Ml*** 1,500 MCG in Sodium Chloride 0.9% 150 ML 120 ML IV SCH ×2 (10:21→19:53)
[2021-01-30] MEDS: Nimbex 200MG/20 Ml MDV (HIGH RISK MED)** 200 MG in Dextrose 5%/Water IV Soln. 250 ML 18... IV SCH ×2 (10:25→19:53)
--- NOTE | 2021-01-30 11:03 | XRAY ---
Indication: Endotracheal tube placement. Comparison: Taken earlier in the day. Portable chest demonstrates new endotracheal tube tip 3 cm above arianna. Remaining chest unchanged again with diffuse bilateral airspace disease, small left effusion, and borderline cardiomegaly.
[2021-01-30] MEDS ORDERED: Levofloxacin 500 MG Tablet PO SCH (12:00)
[2021-01-30 12:12] LABS: A-aADO2 571; ABG POTASSIUM 4.3 (3.5-5.1); ARTERIAL BLD GAS O2 SATURATION 81.2 % (95-100); ARTERIAL BLD GAS TIDAL VOLUME 600 cc; ARTERIAL BLOOD GAS BASE EXCESS -2.8 (-2.0-2.0); ARTERIAL BLOOD GAS FIO2 100 %; ARTERIAL BLOOD GAS PO2 53 mmHg (75-100); ARTERIAL BLOOD GAS VENT MODE A/C; CARBOXYHEMOGLOBIN 0.7 % THgb (0.0-6.9); HCO3- 27.1 (22-28); HGB O2 SAT 80.1 g/dF (94-100); Methhemoglobin 0.7 % (1.4-1.5)
[2021-01-30 12:13] LABS: ARTERIAL BLOOD GAS PCO2 71 mmHg (35-45); ARTERIAL BLOOD GAS pH 7.19 (7.35-7.45)
[2021-01-30 12:14] LABS: ABG SITE LEFT BRACHIAL
[2021-01-30] MEDS ORDERED: BUMEX 1 MG IV ONE (12:36)
--- NOTE | 2021-01-30 13:00 | CONS ---
CONSULT DATE: 01/28/2021 HISTORY: Cl Solano is a 65 year-old male who has been hospitalized at [facility] since 01/26/2021. The patient reportedly tested positive for COVID and progressively developed shortness of breath. He was seen at [facility] prior to this admission. Since admission he was placed on oxygen and has now been pretty much BiPAP dependent. Currently, he is on 100% FIO2 on AVAPS mode with saturation of 92%. The patient desaturated very easily when taken off of BiPAP. He denies any previous pulmonary complaints. PAST MEDICAL HISTORY: The patient has history of hypertension. He has a cardiac murmur which is obvious. History of diabetes mellitus and gastroesophageal reflux. PAST SURGICAL HISTORY: Tan-thyroidectomy and vasectomy. MEDICATIONS: At home he was on glyburide and Cialis. ALLERGIES: NKDA. CAT DANDER. PHYSICAL EXAMINATION: This is a middle aged male who appears tired. The patient is on BiPAP. Vital signs noted. Saturating 91%. HEENT: Normocephalic. Oral exam limited. BiPAP mask is in place. NECK: Accessory muscles of respiration are prominent. CVS: First and second heart sounds are normal, regular, rhythmic. Pansystolic murmur at apex is heard. ABDOMEN: Soft. EXTREMITIES: No edema is noted. LABORATORY DATA AND TESTS: I have reviewed all of the labs along with x-rays and available radiologist tests. ASSESSMENT: This is a 65 year old male admitted with: 1) Acute severe hypoxic respiratory failure. 2) COVID-19 infection with viral pneumonia. 3) Pansystolic murmur. The patient apparently had this investigated with an echo three years ago and would benefit from repeat echo at some point. RECOMMENDATIONS: Continue present treatment. The patient is pretty much noninvasive ventilation dependent at this time. He is being treated currently available standard of care for COVID-19 with Remdesivir, Decadron and anticoagulation. At any point if he decompensates would require intubation. Unfortunately despite aggressive therapy over past few days, Cl Solano has shown no significant improvement from pulmonary standpoint, will continue aggressive therapy with hope of clinical improvement. Will be available as needed.
[2021-01-30] MEDS: ENOXAPARIN SODIUM SQ SCH (13:19)
[2021-01-30] MEDS: PROTONIX 40 MG IV IV SCH (13:20)
[2021-01-30] MEDS: DECADRON 10MG INJ. IV SCH (13:20)
[2021-01-30] MEDS: REMDESIVIR 100 MG in Sodium Chloride 0.9% 100 ML BAG 100 ML IV SCH (13:23)
[2021-01-30] MEDS: Lasix 20 MG/2 ML IV SCH (13:40)
[2021-01-30] MEDS: OLUMIANT PO SCH (13:40)
[2021-01-30] MEDS ORDERED: Sodium Chloride 0.9% 500 ML 500 ML IV ONE ×2 (14:26→17:23)
[2021-01-30] MEDS: Micronase 5 MG PO SCH (14:34)
--- NOTE | 2021-01-30 14:50 | PROG NOTE ---
DATE: 01/29/2021 Events noted. Chart reviewed. HISTORY: The patient is awake, able to answer appropriately, reports improvement in back pain, remains on BiPAP, appears tired but is noted to have good oxygen saturation of 99%. PHYSICAL EXAMINATION: HEENT: Normocephalic. Oral exam limited. BiPAP mask in place. NECK: Supple. CVS: First and second heart sounds are normal, regular, rhythmic. RESPIRATORY: Shows diminished breath sounds. Crackles are heard posteriorly. ABDOMEN: Soft. EXTREMITIES: No edema is noted. LABORATORY DATA AND TESTS: Labs reviewed. BUN 27, glucose 219, sodium 133. D-dimer 1560. White count 12.5. ASSESSMENT: This is a 65-year-old male admitted with: 1) Acute severe hypoxic respiratory failure. 2) COVID-19 infection with viral pneumonia. 3) Low back pain. RECOMMENDATIONS: The patient is noted to have oxygen saturation of 98% on noninvasive ventilation. I reduced FIO2 down to 19% and still able to maintain 94 to 95%. I recommend weaning supplemental oxygen keeping saturations at or above 90%. Continue other treatment. Prognosis remains guarded.
[2021-01-30] MEDS: Levaquin 250MG/50ML D5W 250 MG/50 ML BAG IV SCH (15:00)
[2021-01-30] MEDS ORDERED: Sodium Chloride 0.9% 250 ML 250 ML IV SCH (15:15)
[2021-01-30 16:17] LABS: A-aADO2 528; ABG HEMOGLOBIN 13.7; ARTERIAL BLD GAS O2 SATURATION 99.1 % (95-100); ARTERIAL BLD GAS TIDAL VOLUME 650 cc; ARTERIAL BLOOD GAS BASE EXCESS -3.4 (-2.0-2.0); ARTERIAL BLOOD GAS FIO2 100 %; ARTERIAL BLOOD GAS PCO2 49 mmHg (35-45); ARTERIAL BLOOD GAS PO2 124 mmHg (75-100); ARTERIAL BLOOD GAS pH 7.29 (7.35-7.45); CARBOXYHEMOGLOBIN 0.8 % THgb (0.0-6.9); HCO3- 23.6 (22-28); HGB O2 SAT 97.6 g/dF (94-100); Methhemoglobin 0.7 % (1.4-1.5)
[2021-01-30 16:18] LABS: ABG SITE LEFT BRACHIAL
[2021-01-30 16:57] LABS: Hematocrit 46.4 % (42-50); Hemoglobin 14.8 gm/dl (12.5-18.0); Mean Cell Volume 96.1 fl (78-100); Mean Corpuscular Hemoglobin 30.6 pg (26-32); Mean Corpuscular Hgb Concent. 31.9 g/dl (32-36); Mean Platelet Volume 9.2 fl (7.5-11.0); Platelet Count 244 K/mm3 (150-450); Red Blood Count 4.83 M/mm3 (4.1-5.6); Red Cell Distribution Width 14.5 % (11.5-14.0)
[2021-01-30 17:06] LABS: White Blood Count 26.7 K/mm3 (4.0-10.5)
[2021-01-30] MEDS: ROCEPHIN 1 Gm-D5w 50 ml Bag** 1 G/50 ML IVPB IV SCH (18:07)
[2021-01-30] MEDS: Sodium Chloride 0.9% 1000 ML 1,000 ML IV SCH ×2 (19:26→22:51)
[2021-01-30] MEDS ORDERED: HIBICLENS 4% Scrub TOP SCH (22:00)
[2021-01-30] MEDS: Lubrifresh P.M. 3.5 gm Ointment OP SCH (22:09)
[2021-01-30 23:22] LABS: Lymphocytes 3 % (24-44); Monocyte 3 % (0.0-12.0); Neutrophils 94 % (36.-66.); Total Cells Counted 100
[2021-01-30 23:23] LABS: Platelet Estimate NORMAL (NORMAL)
[2021-01-31] MEDS: LEVOPHED 4 MG/4 ML 4,000 MCG in Dextrose 5%/Water IV Soln. 500 ML 500 ML IV PRN ×2 (02:31→13:46)
[2021-01-31] MEDS: Sodium Chloride 0.9% 1000 ML 1,000 ML IV SCH (05:08)
[2021-01-31] MEDS: Ativan 20 MG/10 ML MDV*** 40 MG in D5w 100ML Mini Bag 100 ML 80 ML IV PRN (05:08)
[2021-01-31] MEDS: Nimbex 200MG/20 Ml MDV (HIGH RISK MED)** 200 MG in Dextrose 5%/Water IV Soln. 250 ML 18... IV SCH ×2 (05:33→13:46)
[2021-01-31] MEDS: SUBLIMAZE 1000 Mcg/ 20 Ml*** 1,500 MCG in Sodium Chloride 0.9% 150 ML 120 ML IV SCH (05:33)
[2021-01-31 06:04] LABS: A-aADO2 438; ABG HEMOGLOBIN 13.4; ABG POTASSIUM 4.9 (3.5-5.1); ABG SITE RIGHT BRACHIAL; ARTERIAL BLD GAS TIDAL VOLUME 650 cc; ARTERIAL BLOOD GAS BASE EXCESS -4.1 (-2.0-2.0); ARTERIAL BLOOD GAS FIO2 80 %; ARTERIAL BLOOD GAS PCO2 44 mmHg (35-45); ARTERIAL BLOOD GAS PO2 77 mmHg (75-100); ARTERIAL BLOOD GAS VENT MODE A/C; ARTERIAL BLOOD GAS VENT RATE 16 /MIN; ARTERIAL BLOOD GAS pH 7.31 (7.35-7.45); CARBOXYHEMOGLOBIN 3.6 % THgb (0.0-6.9); HCO3- 22.2 (22-28); HGB O2 SAT 92.8 g/dF (94-100); Methhemoglobin 0.7 % (1.4-1.5)
[2021-01-31 06:05] LABS: Hematocrit 40.7 % (42-50); Mean Corpuscular Hemoglobin 30.7 pg (26-32); Mean Corpuscular Hgb Concent. 31.9 g/dl (32-36); Mean Platelet Volume 8.8 fl (7.5-11.0); Platelet Count 250 K/mm3 (150-450); Red Blood Count 4.24 M/mm3 (4.1-5.6); Red Cell Distribution Width 14.6 % (11.5-14.0); White Blood Count 22.6 K/mm3 (4.0-10.5)
[2021-01-31 06:32] LABS: ALKALINE PHOSPHATASE 92 U/L (38-126); ANION GAP 10.8 MEQ/L (5-15); BLOOD UREA NITROGEN 26 mg/dL (9-20); CHLORIDE 105 mmol/L (98-107); Calcium 7.4 mg/dL (8.4-10.2); Carbon Dioxide 24 mmol/L (22-30); Creatinine 1 1.11 mg/dL (0.66-1.25); EST GLOMERULAR FILTRATION RATE > 60.0 ML/MIN; Glucose 331 mg/dL (74-106); SGOT/AST 67 U/L (17-59); SGPT/ALT 40 U/L (0-50); SODIUM 135 mmol/L (137-145); Total Protein 6.2 g/dL (6.3-8.2)
[2021-01-31] MEDS: DUONEB 0.5-3 MG/3 ml Neb IH SCH ×2 (07:45→11:35)
--- NOTE | 2021-01-31 08:40 | XRAY ---
Indication: Positive Covid 19. Comparison: One day earlier. Portable chest demonstrates new NG tube tip in stomach and endotracheal tube tip now 4 cm above arianna. Lungs demonstrates grossly stable diffuse bilateral airspace disease, small left effusion, and borderline cardiomegaly. No new cardiopulmonary abnormalities.
[2021-01-31] MEDS: DECADRON 10MG INJ. IV SCH (09:16)
[2021-01-31] MEDS: ENOXAPARIN SODIUM SQ SCH (09:16)
[2021-01-31] MEDS: ROCEPHIN 1 Gm-D5w 50 ml Bag** 1 G/50 ML IVPB IV SCH (09:17)
[2021-01-31] MEDS: Lasix 20 MG/2 ML IV SCH (09:17)
[2021-01-31] MEDS: Lubrifresh P.M. 3.5 gm Ointment OP SCH (09:17)
[2021-01-31] MEDS: PROTONIX 40 MG IV IV SCH (09:17)
[2021-01-31] MEDS: HUMALOG SQ PRN ×2 (09:18→11:39)
[2021-01-31] MEDS: Levaquin 250MG/50ML D5W 250 MG/50 ML BAG IV SCH (09:58)
[2021-01-31] MEDS ORDERED: CHLORHEXIDINE GLUCONATE MM SCH (10:00)
[2021-01-31] MEDS: OLUMIANT PO SCH (10:38)
[2021-01-31 14:07] VITALS: BP 102/58; PULSE 97; O2SAT 99
--- NOTE | 2021-02-20 14:26 | DS ---
ADMISSION DIAGNOSIS: COVID pneumonia. DISCHARGE DIAGNOSES: 1) COVID PNEUMONIA. 2) RESPIRATORY FAILURE. 3) OBESITY. Discharged to [facility] on 01/31/2021. HOSPITAL COURSE: The patient was very hypoxic on his admission. He was rapidly on high flow and BiPAP was the only way to keep his O2 up. He became extremely tired and wore out and we had to intubate him before transferring him. Blood pressure started to drop and he was placed on dexamethasone drip. His D-dimer was 1300. He was somewhat stable the first few days. His oxygen level never improved. He remained hypoxic. His D-dimer was in the 1300's and as high as 8000. He had problems with urinary retention. [place] had to [place] [id number]. He had antibiotics at that time thinking he had a secondary urinary tract infection, possible pneumonia. His O2 saturations dropped to 80% on 02/01/2021 and was intubated. He has been on Remdesivir, Decadron, antibodies and later on Levaquin and Flagyl. After he was intubated, it took a while to get a bed. He was on pressers. He was discharged. 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 He was 65.
== END 2021-01-31 14:22 | disposition short-term general hospital (02) | DRG 177 ==
LOC: ED 09:36 → MED SURG 13:35
PROVIDERS: ADMIT Family Medicine; ATTEND Family Medicine
DX: U07.1 COVID-19 (principal); J12.82 Pneumonia due to coronavirus disease 2019; J96.01 Acute respiratory failure with hypoxia; E87.1 Hypo-osmolality and hyponatremia; N39.0 Urinary tract infection, site not specified; E11.9 Type 2 diabetes mellitus without complications; I10 Essential (primary) hypertension; R01.1 Cardiac murmur, unspecified; Z79.899 Other long term (current) drug therapy; Z20.822 Contact with and (suspected) exposure to COVID-19; E66.9 Obesity, unspecified; R33.9 Retention of urine, unspecified
CPT/HCPCS: 31500; 36000; 36415; 36600; 71045; 71260; 80053; 81001; 82375; 82803; 82947; 83036; 83605; 83735; 83880; 84134; 84484; 85025; 85027; 85379; 87040; 87086; 93005; 94002; 94003; 94640; 94660; 94762; 94770; 99285; 99291; J0330; J0696; J1100; J1650; J1817; J1940; J1956; J2060; J2250; J3010; U0003; A9270-GY